=== PATIENT | male | born 1990 | race Caucasian/White ===

== ENCOUNTER 2016-11-06 17:41 | Emergency (ER) | payer SELFPAY ==
[~2016-11-06] VITALS: Ht 182.8 cm; Wt 95.3 kg
[~2016-11-06 17:41] MED LIST: ANAPROX DS550 MG PO; BACTRIM DS 8001 TAB PO; HYDROCODONE BIT1 T11 PO; KEFLEX500 M1 PO; Motrin,Rufen800 MG PO; NO DAILY MEDS; SEPTRA DS 800 M1 TAB PO; ZITHROMAX Z PA250 MG PO; ZOFRAN ODT4 MG PO; ZOFRAN4 MG PO; Zofran4 MG PO
[2016-11-06 18:04] VITALS: BP 162/84
[2016-11-06] MEDS ORDERED: CEPHALEXIN500 M1 PO (20:18)
== END 2016-11-06 20:25 | disposition home or self-care (01) ==
LOC: ED 17:41
DX: S61.412A Laceration without foreign body of left hand, initial encounter (principal); F17.200 Nicotine dependence, unspecified, uncomplicated; W22.01XA Walked into wall, initial encounter; Y93.02 Activity, running; Y92.89 Other specified places as the place of occurrence of the external cause; Y99.8 Other external cause status

== ENCOUNTER 2019-08-27 11:05 | Emergency (ER) | payer SELFPAY ==
[~2019-08-27] VITALS: Ht 182.8 cm; Wt 104.3 kg
[~2019-08-27 11:05] MED LIST changes: +CEPHALEXIN500 M1 PO
[2019-08-27 11:22] VITALS: BP 143/84
[2019-08-27] MEDS ORDERED: Motrin,Rufen800 MG PO (11:57)
[2019-08-27] MEDS ORDERED: PREDNISONE10 MG PO (11:57)
== END 2019-08-27 12:12 | disposition home or self-care (01) ==
LOC: ED 11:05
DX: M54.5 Low back pain (principal); F17.200 Nicotine dependence, unspecified, uncomplicated; Z79.899 Other long term (current) drug therapy

== ENCOUNTER → 2020-03-02 | Outpatient (CLI) | payer SELFPAY ==
[~2020-03-02] MED LIST changes: +PREDNISONE10 MG PO
== END | disposition home or self-care (01) ==
LOC: COVID19 15:56
PROVIDERS: ATTEND Internal Medicine
DX: Z20.828 Contact with and (suspected) exposure to other viral communicable diseases (principal)

== ENCOUNTER → 2020-11-28 | Outpatient (CLI) | payer OTHER | END | disposition home or self-care (01) | LOC: COVID19 17:05 | PROVIDERS: ATTEND Internal Medicine | DX: Z11.52 Encounter for screening for COVID-19 (principal) ==

== ENCOUNTER 2021-11-01 11:55 | Emergency (ER) | payer BC ==
[2021-11-01 12:01] VITALS: BP 135/77
[2021-11-01] MEDS ORDERED: ZITHROMAX250 MG PO (12:37)
== END 2021-11-01 12:50 | disposition home or self-care (01) ==
LOC: ED 11:55
DX: U07.1 COVID-19 (principal); J20.9 Acute bronchitis, unspecified; F17.200 Nicotine dependence, unspecified, uncomplicated; Z90.89 Acquired absence of other organs